=== PATIENT | female | born 1985 | race African-American/Black ===

== ENCOUNTER 2018-08-14 13:06 | Emergency (ER) | payer MEDICARE, MEDICAID ==
[~2018-08-14 13:06] MED LIST: ISOVUE-370 76%-LOCM 1 ML ONE
[2018-08-14 13:39] LABS: #Lymphocytes 2.2 thou/uL (1.20-3.40); #Monocytes 0.5 thou/uL (0.11-0.59); #Neutrophils 4.3 thou/uL (1.40-6.50); %Basophils 0.1 % (0.0-1.0); %Eosinophils 0.4 % (0.0-10.0); %Lymphocytes 31.7 % (21.0-51.0); %Monocytes 7.2 % (0.0-10.0); %Neutrophils 60.6 % (42.0-75.0); Hemoglobin 13.1 g/dL (12.0-16.0); Mean Corpuscular HGB CONC 31.9 g/dL (32.0-36.0); Mean Corpuscular Hemoglobin 28.4 pg (27.0-31.0); Mean Corpuscular Volume 88.9 fL (78.0-98.0); Mean Platelet Volume 7.8 fL (7.4-10.4); Platelet Count 310 thou/uL (130-400); RBC Distribution Width 11.6 % (11.5-14.5); Red Blood Cell (RBC) Count 4.62 mill/uL (4.20-5.40)
[2018-08-14 14:04] LABS: ALT (SGPT) 24 U/L (8-55); AST (SGOT) 18 U/L (5-34); Albumin 4.5 g/dL (3.5-5.0); Alkaline Phosphatase 88 U/L (40-150); Anion Gap 14 mmol/L (10-20); BUN (Urea Nitrogen) 11 mg/dL (7.0-18.7); Bilirubin, Total 0.3 mg/dL (0.2-1.2); CK (CPK) 67 U/L (29-168); Calc. Creatinine Clearance 0 mL/min (70-130); Calcium 9.5 mg/dL (7.8-10.44); Carbon Dioxide 22 mmol/L (22-29); Chloride 105 mmol/L (98-107); Estimated GFR-MDRD Greater than 90; Globulin 3.5 g/dL (2.4-3.5); Glucose 83 mg/dL (70-105); Lipase 20 U/L (8-78); Potassium 3.5 mmol/L (3.5-5.1); Sodium 137 mmol/L (136-145)
[2018-08-14 14:44] LABS: BHCG - Serum Negative (NEGATIVE); Pregs Control Background? CLEAR/WHITE (CLR/WHITE); Pregs Control Bar Appear? YES (CONTROL BAR)
--- NOTE | 2018-08-14 15:49 | RAD ---
PORTABLE CHEST 1 VIEW: DATE: 08/14/2018. TIME: 1:30 p.m. HISTORY: Chest pain. FINDINGS: The heart size is normal. The lungs are expanded without focal areas of consolidation, pneumothorax, or pleural effusions. IMPRESSION: No acute process. POS: [facility]
[2018-08-14] MEDS ORDERED: Ketorolac Tromethamine 30 MG/ML VIAL ONE (16:10)
--- NOTE | 2018-08-14 16:16 | CT ---
CTA THORAX WITH CONTRAST: 08/14/18 (Computed Tomographic Angiography, chest(noncoronary) with contrast material, and image postprocessin g) (PE protocol) HISTORY: 33-year-old female with chest pain. TECHNIQUE: IV injection of iodinated contrast: 100 mL isovue 370. Scan acquisition timing attempted to coincide with iodinated contrast bolus reaching maximal density in pulmonary arteries. 3D MIP reconstructions. FINDINGS: Pulmonary thromboembolism: None. Lungs: Clear. Pneumothorax: None. Pleural effusion: None. Thoracic aorta: No aneurysm or dissection. Mediastinum: No lymphadenopathy or other mass. Velia: No lymphadenopathy or other mass. IMPRESSION: Normal. isadora[] POS: [facility]
== END 2018-08-14 16:19 | disposition home or self-care (01) ==
LOC: ERS 13:06
DX: F41.9 Anxiety disorder, unspecified (principal); F32.9 Major depressive disorder, single episode, unspecified
CPT/HCPCS: 71045; 71275; 80053; 82550; 83690; 84484; 84703; 85025; 85379; 93005; 96374; J1885; Q9966

== ENCOUNTER 2019-06-22 07:42 | Emergency (ER) | payer MEDICARE, MEDICAID ==
[2019-06-22 17:37] LABS: Pregnancy Test - Urine (BHCG) POSITIVE (Negative); Pregu Control Background? CLEAR/WHITE (CLR/WHITE); Pregu Control Bar Appear? YES (CONTROL BAR); Specific Gravity 1.026 (1.002-1.036)
== END 2019-06-22 09:23 | disposition home or self-care (01) ==
LOC: ERS 07:42
DX: O99.89 Other specified diseases and conditions complicating pregnancy, childbirth and the puerperium (principal); N64.4 Mastodynia; O99.331 Smoking (tobacco) complicating pregnancy, first trimester; F17.200 Nicotine dependence, unspecified, uncomplicated; Z3A.01 Less than 8 weeks gestation of pregnancy
CPT/HCPCS: 81025; 99284

== ENCOUNTER 2019-07-10 16:43 | Emergency (ER) | payer MEDICARE, OTHER ==
[2019-07-10] MEDS ORDERED: diphenhydrAMINE 50 MG/ML VIAL ONE (18:06)
[2019-07-10] MEDS ORDERED: Metoclopramide HCl 10 MG/2 ML VIAL ONE (18:06)
[2019-07-10 19:15] LABS: Bilirubin Negative (Negative); Blood, Urine Negative (Negative); Glucose, Urine (Dipstick) Normal (Negative); Leukocyte Negative Leu/uL (Negative); Nitrite Negative (Negative); Protein, Urine (Dipstick) Negative (Neg-Trace); Urobilinogen Normal mg/dL (Less than 2)
[2019-07-10 19:17] LABS: Clarity Slightly Cloudy (Clear)
[2019-07-10 19:39] LABS: Hemoglobin 11.9 g/dL (12.0-16.0); Mean Corpuscular HGB CONC 34.5 g/dL (32.0-36.0); Mean Corpuscular Hemoglobin 29.3 pg (27.0-31.0); Mean Corpuscular Volume 85.1 fL (78.0-98.0); Mean Platelet Volume 8.2 fL (7.4-10.4); Platelet Count 263 thou/uL (130-400); RBC Distribution Width 11.1 % (11.5-14.5); Red Blood Cell (RBC) Count 4.07 mill/uL (4.20-5.40); White Blood Cell (WBC) Count 7.4 thou/uL (4.8-10.8)
[2019-07-10 20:02] LABS: ALT (SGPT) 23 U/L (8-55); AST (SGOT) 16 U/L (5-34); Alkaline Phosphatase 87 U/L (40-110); Anion Gap 16 mmol/L (10-20); BUN (Urea Nitrogen) 10 mg/dL (7.0-18.7); Bilirubin, Total Less than 0.2 mg/dL (0.2-1.2); Calc. Creatinine Clearance 0 mL/min (70-130); Calcium 9.9 mg/dL (7.8-10.44); Carbon Dioxide 20 mmol/L (22-29); Chloride 106 mmol/L (98-107); Estimated GFR-MDRD Greater than 90; Globulin 3.2 g/dL (2.4-3.5); Glucose 91 mg/dL (70-105); Potassium 3.7 mmol/L (3.5-5.1); Protein, Total 7.2 g/dL (6.0-8.3); Sodium 138 mmol/L (136-145)
[2019-07-10 20:12] LABS: #Eosinphils 0.1 thou/uL (0.0-0.7); #Lymphocytes 2.3 thou/uL (1.20-3.40); #Monocytes 0.5 thou/uL (0.11-0.59); #Neutrophils 4.4 thou/uL (1.40-6.50); %Basophils 0.2 % (0.0-1.0); %Eosinophils 0.9 % (0.0-10.0); %Lymphocytes 31.6 % (21.0-51.0); %Monocytes 7.3 % (0.0-10.0); %Neutrophils 60.1 % (42.0-75.0); Band 3 % (5-11); Eosinophils 2 % (0-10); Lymphocytes 31 % (21-51); MDiff Complete? YES; Monocytes 5 % (0-10); Neutrophil 59 % (42-75); Platelet Morphology Comment Appears Adequate; RBC Morphology Normal
[2019-07-10] MEDS ORDERED: Acetaminophen 500 MG TAB ONE (22:05)
--- NOTE | 2019-07-10 22:14 | ULT ---
US Pelvic W Doppler HISTORY: Size and dates severe headache COMPARISON: None. FINDINGS: There is a twin viable intrauterine present. Twin A has crown-rump length measure ments of 2 cm corresponding to 8 weeks 4 days. heart rate is 163 bpm. Twin B measures 1.5 cm corresponding to 7 weeks 6 days. heart rate is 160 bpm. There appear to be separate amniotic sacs. The right and left adnexa are unremarkable. Doppler evaluation with spectral analysis: Normal flow shown to the adnexal regions. IMPRESSION: Twin viable intrauterine . Twin A has measurements corresponding to 8 weeks 4 da ys with an estimated date of delivery of 02/15/2020 and twin B is 7 weeks 6 days with an estimated date of delivery of 02/20/2020.
== END 2019-07-10 22:50 | disposition home or self-care (01) ==
LOC: ERS 16:43
DX: O99.89 Other specified diseases and conditions complicating pregnancy, childbirth and the puerperium (principal); R51 Headache; Z3A.08 8 weeks gestation of pregnancy
CPT/HCPCS: 76856; 80053; 81003; 85025; 93976; 96365; 96375; J1200; J2765

== ENCOUNTER 2019-12-15 11:02 | Day surgery (SDC) | payer MEDICARE, MEDICAID ==
[2019-12-15 11:51] VITALS: BMI 34.7
[2019-12-15 12:13] LABS: #Basophils 0.1 thou/uL (0.0-0.2); #Lymphocytes 1.4 thou/uL (1.20-3.40); #Monocytes 0.4 thou/uL (0.11-0.59); #Neutrophils 7.2 thou/uL (1.40-6.50); %Basophils 0.6 % (0.0-1.0); %Eosinophils 0.2 % (0.0-10.0); %Lymphocytes 15.6 % (21.0-51.0); %Monocytes 4.7 % (0.0-10.0); %Neutrophils 78.9 % (42.0-75.0); Hemoglobin 12.4 g/dL (12.0-16.0); Mean Corpuscular HGB CONC 32.9 g/dL (32.0-36.0); Mean Corpuscular Hemoglobin 28.3 pg (27.0-31.0); Mean Corpuscular Volume 85.9 fL (78.0-98.0); Mean Platelet Volume 9.2 fL (7.4-10.4); Platelet Count 172 thou/uL (130-400); Red Blood Cell (RBC) Count 4.39 mill/uL (4.20-5.40); White Blood Cell (WBC) Count 9.1 thou/uL (4.8-10.8)
[2019-12-15 12:32] LABS: Bacteria/HPF 2+ HPF (None Seen); Bilirubin Negative (Negative); Blood, Urine Negative (Negative); Clarity Turbid (Clear); Glucose, Urine (Dipstick) Normal (Negative); Leukocyte 75 Leu/uL (Negative); Nitrite Negative (Negative); Protein, Urine (Dipstick) 100 mg/dL (Neg-Trace); RBC/HPF 0-3 HPF (0-3); Urobilinogen Normal mg/dL (Less than 2)
--- NOTE | 2019-12-15 12:37 | PDOC.LDHP ---
Labor and Delivery H&P Chief complaint: other (Lightheadedness) HPI: 34yo di-di twin gestation @ 30.2wks by LMP and 13.2wk logan presents to L&D from clinic with complaints of lightheadedness and near syncope. Pt states that she has had minimal appetite for the last 2 days and has not eaten much of anything or drank anything during that time. Denies any N/V/D during this time. This morning she was getting up from bed to go to the bathroom around 0400 and suddenly got lightheaded, sweaty, and developed tunnel vision before sitting back down on her bed. This resolved after a few minutes. Went to the clinic for routine f/u and labs and had recurrence of these symptoms, getting very light headed and sweaty while walking to her room and then developing tunnel vision feeling like she was going to pass out as she sat down. Denies any chest pain, shortness of breath, or nausea with this. Did note some left arm pain to the provider but was unsure if this was because the BP cuff aggrivated an old injury to that area. Pt was then sent here for further workup.No family or personal hx of clotting/bleeding disorders. No recent trauma, leg pain/swelling. Current gestational age (weeks): 30 (.2) Grav: 5 Para: 2 (2021) Current complications: di/di twins Abnormal US findings: Yes (18% discordance on 08/18/2019) Past Medical History: Depression Current medications: pre- vitamins Previous surgical history: other (Left arm ORIF) Allergies/Adverse Reactions: Allergies Allergy/AdvReac Type Severity Reaction Status Date / Time hydrocodone bitartrate Allergy Unknown Verified 10/07/19 11:31 [From Vicodin] tramadol Allergy Unknown Verified 10/07/19 11:31 Social history: none - Physical Exam Vital signs reviewed and normal: yes General: NAD, resting Heart: RRR Lungs: CTAB Abdomen: gravid Extremeties: no edema FHT: category 1, variability present - OB Labs Blood type: O RH: positive Antibody Screen: negative HIV: negative RPR: negative HEPSAg: negative Rubella: immune Additional Labs: TSH 0.382 A1c 5.4 - Assessment Encounter of 3T Twin Gestation Near syncopal episodes - likely related to vasovagal event - Plan -: Near Syncope - Likely 2/2 Vasovagal Event - NST: reactive for twin A and B with Cat 1 strips - EKG: NSR, T wave inversions in III, AVF, V1, V2 - Pt received 1L LR bolus and ate lunch/PO hydrated - Afterwards she was feeling much better - BP improved from around 100 syst to in the 110's - Had elevated prot/cr ratio but this was likely due to a very contaminated catch - All other labs normal - Discussed return precautions prior to DC Dinesh Martinez PGY1 This case was discussed with Dr. Leary, attending, who agreed with the plan. Addendum - Attending - Attending Attestation Date/Time: 12/16/1997 I personally evaluated the patient and discussed the management with Dr. Martinez on day of service. I agree with the History, Examination, Assessment and Plan documented above with any addition or exceptions noted below. Patient asymptomatic and well appearing during my exam. She had what seem to be quite clearly vasovagal episodes upon standing with lightheadedness, sweating/ mild nausea and presyncope in the setting of a twin gestation and decreased PO intake. Her exam is nonfocal with RRR s M, neg homans/simran/circ difference of calves. On EKG changes c/w noted. Unremarkable labs except a contaminated clean catch. After fluid bolus she felt markedly better and desired to go home. Follow up next week as she has had incomplete care due to lack of follow up. I have very low suspicion for ACS or PE. Return precautions discussed.
[2019-12-15 12:38] LABS: Troponin I Less than 0.010 ng/mL (< 0.028)
[2019-12-15 12:48] LABS: Urine Culture Reflex No No
[2019-12-15] MEDS ORDERED: Lactated Ringer's 1,000 ML IV SCH (13:00)
[2019-12-15 13:29] LABS: ALT (SGPT) 10 U/L (8-55); AST (SGOT) 13 U/L (5-34); Albumin 3.8 g/dL (3.5-5.0); Alkaline Phosphatase 122 U/L (40-110); Anion Gap 16 mmol/L (10-20); BUN (Urea Nitrogen) 7 mg/dL (7.0-18.7); Bilirubin, Total 0.2 mg/dL (0.2-1.2); Calc. Creatinine Clearance 214 mL/min (70-130); Calcium 9.3 mg/dL (7.8-10.44); Carbon Dioxide 18 mmol/L (22-29); Chloride 104 mmol/L (98-107); Estimated GFR-MDRD Greater than 90; Globulin 3.5 g/dL (2.4-3.5); Glucose 71 mg/dL (70-105); Potassium 3.7 mmol/L (3.5-5.1); Protein, Total 7.3 g/dL (6.0-8.3); Sodium 134 mmol/L (136-145)
== END 2019-12-15 16:00 | disposition home or self-care (01) ==
LOC: L&D/OP 11:02
DX: O99.89 Other specified diseases and conditions complicating pregnancy, childbirth and the puerperium (principal); R55 Syncope and collapse; O30.043 Twin pregnancy, dichorionic/diamniotic, third trimester; Z3A.30 30 weeks gestation of pregnancy; Z88.5 Allergy status to narcotic agent
CPT/HCPCS: 36415; 59025; 80053; 81001; 82570; 83880; 84156; 84484; 85025; 93005; 93010; 96360; 96361; 99283

== ENCOUNTER 2020-02-07 13:31 | Inpatient (IN) | payer MEDICARE, MEDICAID ==
--- NOTE | 2020-02-07 22:33 | PDOC.FPROB ---
FMR OB H&P: HPI - History of Present Illness Chief Complaint: mIOL for twin Indentification: 34 yo @ 38.3 weeks by 13.2 sono History of Present Illness: Patient is a 34 yo @ 38.3 weeks by 13.2 sono, PMHx of Depression, SAB x 2 and incomplete care who presented for mIOL for twin which will now be a scheduled csection. Patient notes good movement. Notes mild vaginal discharge a few days ago and loss of her mucous plug 5 days ago. Denies fever, vaginal bleeding, loss of fluid. After being presented with the option of vs Csection, the patient decided she would rather do a scheduled csection. Patient states that she is dealing with depression and anxiety, notes she takes prozac and last took it this morning. Primary Care Physician: VERONICA Nunn FMR OB H&P: Current - Care : 5 Para: 2021 Gestational age: 38.3 weeks Due date: 02/18/2020 Dating Criteria: 13.2 week sono Course/Complications: Twin , Hx SAB x 2, incomplete care, Depression, Hx PPD - OB Labs Blood type: O RH: positive Antibody Screen: negative HIV: negative RPR: negative HepBsAg: negative Rubella: immune Urine drug screen: not done Gonorrhea: negative Chlamydia: negative Pap Smear: no hx abnormal pap smears A1c: 5.4 GBS: unknown H&H: 10.6/31.6 Additional labs: labs from Jul 2019 - First Trimester Ultrasound First trimester: Di/di twin confirmed. - Anatomy Survey Anatomy survey: Pt did not follow up for anatomy scan. FMR OB H&P: History - Past Medical History PMH: Depression - OB History OB History: ; SAB x2, 2 normal with no complications - ENGAGEMENT MGR History ENGAGEMENT MGR History: No abnormal pap smears, denies STDs - Surgical History Sx History: None - Social History Social History: Smoker, stopped smoking after she found out she was ; denies alcohol or drugs - Family History Family History: Mother: DM, cancer FMR OB H&P: Medications - Current Home Medications: Medication Instructions Recorded Confirmed Type Vitamin 1 tab PO DAILY 08/18/13 02/07/20 History FLUoxetine HCl [Prozac] 10 mg PO DAILY 02/07/20 02/07/20 History Omeprazole 20 mg PO DAILY 02/07/20 02/07/20 History Allergies/Adverse Reactions: Allergies Allergy/AdvReac Type Severity Reaction Status Date / Time hydrocodone bitartrate Allergy Unknown Verified 10/07/19 11:31 [From Vicodin] FMR OB H&P: ROS - Review of Systems General: denies: fever/chills, night sweats Eyes: denies: eye pain, vision changes ENT: denies: nasal congestion, rhinorrhea Respiratory: denies: cough, congestion Gastrointestinal: denies: nausea, vomiting Genitourinary (Female): denies: incontinence, dysuria Musculoskeletal: reports: other (pain in lower back and right leg) Neurologic: denies: numbness, syncope Integumentary: denies: itching, rash Psychological: reports: depression, anxiety FMR OB H&P: Vital Signs - Maternal Vital signs: HR 105, RR 16, BP 143/83, afebrile - Heart Tones Baseline: 140 FMR OB H&P: Physical Exam - Physical Exam General: NAD, awake, alert and oriented HEENT: normocephalic and atraumatic, EOMI Heart: RRR, no murmurs/rubs/gallops General: CTAB, no respiratory distress Abdomen: soft, gravid Musculoskeletal: normal gait and station, pulses present Neurological: sensation to pain,touch and proprioception grossly normal Skin: no rash, no jaundice Lymphatic: no unusual bruising or bleeding - Pelvic Exam Vulva: normal hair distribution, no masses, no lesions, no discharge, no blood, normal rugae SVE: 1/thick/-3 Membranes: intact Presentation: vertex, vertex FMR OB H&P: Results - Imaging Imaging: US showed vertex, vertex with anterior placenta FMR OB H&P: A/P Discussion: Date/Time: 02/07/202230 Patient is a 34 yo @ 38.3 weeks by 13.2 sono, PMHx of Depression, obesity, SAB x 2 and incomplete care who presented for mIOL for twin which will now be a scheduled csection. After being presented with the option of vs Csection, the patient decided she would rather do a scheduled csection. Patient states that she is dealing with depression and anxiety, notes she takes prozac and last took it this morning. Term Twin , Di/Di - Csection scheduled for 02/07 at 0730 - a1c 5.4, HIV neg, Rub immune, TSH 0.382, GC neg, COVID neg - O+, Ab neg - GBS unknown - HBsAg, RPR labs ordered - Hemagram ordered - NPO at midnight - Strip showed heart tones at 130s-140s, cat I - will continue to monitor strip Hx incomplete care - no anatomy scan, no GTT - labs ordered, see above Hx SAB x 2 - unknown cause Depression - hx of PPD - taking prozac, last taken 02/06 am - close monitoring s/p delivery This H&P was discussed with Dr. Arambula and Dr. Leary who agree with the above documentation and plan. Reviewed hx with international coordinator Mary Ann Vinson as above. Agree with plan. Discussed CS vs with patient who wished to proceed with CS. Patient to be NPO @ midnight. Scheduled for CS @ 730. Patient with cat 1 FHT. SVE /. Will continue to monitor throughout the night. Case discussed with Dr. Leary Addendum - Attending - Attending Attestation Date/Time: 02/08/20 0746 I personally evaluated the patient and discussed the management with the team. I agree with the History, Examination, Assessment and Plan documented above with any addition or exceptions noted below. Risks discussed of both and PLTCS and she decided on PLTCS. She had originally been planning on this and is more comfortable with this option. Will schedule for 02/07 AM.
[2020-02-07 23:09] VITALS: BMI 37.3
[2020-02-07] MEDS ORDERED: hydrALAZINE 20 MG/ML VIAL SLOW IVP PRN (23:53)
[2020-02-07] MEDS ORDERED: Promethazine HCl 25 MG/ML VIAL IM PRN (23:53)
[2020-02-07] MEDS ORDERED: Ondansetron PF 4 MG/2 ML Vial IVP PRN (23:53)
[2020-02-08 06:34] LABS: Hemoglobin 11.1 g/dL (12.0-16.0); Mean Corpuscular HGB CONC 32.5 g/dL (32.0-36.0); Mean Corpuscular Hemoglobin 26.5 pg (27.0-31.0); Mean Corpuscular Volume 81.7 fL (78.0-98.0); Mean Platelet Volume 9.8 fL (7.4-10.4); Platelet Count 151 thou/uL (130-400); RBC Distribution Width 12.9 % (11.5-14.5); Red Blood Cell (RBC) Count 4.17 mill/uL (4.20-5.40); White Blood Cell (WBC) Count 4.9 thou/uL (4.8-10.8)
[2020-02-08 07:12] LABS: Syphilis Antibody Nonreactive (Nonreactive); Syphilis Antibody Index 0.03 S/CO (<1.00 Non-Reactive)
[2020-02-08 07:13] LABS: HBSAg Index 0.15 S/CO (0-0.99); Hep B Surf Ag Non-Reactive S/CO (NonReactive)
[2020-02-08] MEDS ORDERED: CEFAZOLIN 2 GM in Premix Bag 1 BAG IVPB SCH (07:15)
[2020-02-08] MEDS ORDERED: Bicitra 30 ML UDCUP PO SCH (07:15)
[2020-02-08] MEDS ORDERED: Fentanyl 100 MCG/2 ML VIAL ONE (07:23)
[2020-02-08] MEDS ORDERED: Oxytocin 10 UNITS/ML VIAL ONE ×2 (07:23→09:28)
[2020-02-08] MEDS ORDERED: MORPHINE 5 MG/10 ML PF VIAL ONE (07:24)
[2020-02-08] MEDS ORDERED: Bicitra 30 ML UDCUP ONE (07:33)
[2020-02-08] MEDS: Lactated Ringer's 1,000 ML IV SCH ×2 (07:50→23:35)
[2020-02-08] MEDS ORDERED: Methylergonovine 0.2 MG/ML VIAL ONE (08:58)
[2020-02-08] MEDS ORDERED: Carboprost 250 MCG/ML AMP ONE (08:58)
[2020-02-08] MEDS ORDERED: Misoprostol 200 MCG TAB ONE (08:59)
[2020-02-08] MEDS ORDERED: PHENYLEPHRINE-NS 100 MCG/ML 10 ML SYRINGE ONE (09:22)
[2020-02-08] MEDS ORDERED: Ondansetron PF 4 MG/2 ML Vial ONE (09:22)
[2020-02-08] MEDS ORDERED: Ondansetron HCl/PF 4 MG/2 ML Vial IVP PRN (10:49)
[2020-02-08] MEDS ORDERED: Meperidine HCl/PF 25 MG/ML VIAL SLOW IVP PRN (10:49)
[2020-02-08] MEDS ORDERED: Naloxone HCl 0.4 mg/ml Vial IV PRN (10:52)
[2020-02-08] MEDS ORDERED: Ondansetron PF 4 MG/2 ML Vial IVP PRN ×2 (10:52→12:39)
[2020-02-08] MEDS ORDERED: Promethazine HCl 25 MG/ML VIAL IM PRN (10:52)
[2020-02-08] MEDS ORDERED: Promethazine HCl 25 MG SUPP PR PRN (10:52)
[2020-02-08] MEDS ORDERED: Naloxone HCl 0.4 mg/ml Vial IVP PRN ×2 (10:52)
[2020-02-08] MEDS ORDERED: Ketorolac Tromethamine 30 MG/ML VIAL IVP SCH (11:00)
[2020-02-08] MEDS ORDERED: Communication Order-Pharmacy FS SCH (11:00)
--- NOTE | 2020-02-08 11:47 | OP ---
DATE OF PROCEDURE: 02/08/2020 PRIMARY SURGEON: Jorge Alberto Lemons M.D., Bethel Nunn D.O. ASSISTANCE SURGEON: Donny Hardin M.D. PROCTORING SURGEON: Kirt Leary M.D. PREOPERATIVE DIAGNOSES: 1. Dichorionic diamniotic twins at 38.4 weeks. 2. History of 2 prior spontaneous abortions. 3. Obesity. 4. Intermittent followup. 5. History of depression. 6. Prior vaginal delivery x2. POSTOPERATIVE DIAGNOSES: 1. Suspected monochorionic diamniotic twins based on gross pathological assessment. 2. hemorrhage. 3. History of 2 prior spontaneous abortions. 4. Obesity. 5. Intermittent followup. 6. History of depression. 7. Prior vaginal delivery x2. ANESTHESIA: Spinal. QUANTITATIVE BLOOD LOSS: 1655 mL. DRAINS: Baugh catheter with clear urine pre and postoperatively. INDICATIONS: Ms. Hazel is a 34-year-old, 5, para 2-0-2-2 at 38.4 weeks who initially presented for induction of labor at 38 weeks per [facility] recommendations for dichorionic diamniotic twins. After discussion of indication, risks, and benefits of attempting a vaginal twin delivery versus proceeding with primary , the patient elected to proceed with primary . She was scheduled on the morning of 02/07. The [facility]ist [facility] was notified of the patient on arrival. PROCEDURE IN DETAIL: The patient provided consent after risks, benefits, alternatives were discussed. She was given Ancef 2 g preoperatively. She was taken to the operating room and spinal anesthesia was initiated. She was placed in the supine position with left lateral tilt and prepped and draped in usual sterile fashion. A Pfannenstiel incision was carried down in the midline to the fascia, which was sharply nicked. Bovie cautery was used at this time to address subcuticular bleeding vessels. The fascial incision was bluntly extended. The superior and inferior edges of the fascia were elevated with Chandrakant clamps and bluntly and sharply dissected free of the underlying rectus muscles. The rectus muscles were divided digitally. The peritoneum was entered digitally. The rectus muscles and peritoneum were retracted manually. Ned O retractor was placed providing optimal visualization of the lower uterine segment. At this time, the uterus was rotated slightly towards the maternal right. The lower uterine segment was identified as was the midline of the uterus and a lower uterine segment score was made with a clean scalpel. The uterus was entered bluntly with the Yankauer suction tip and at this time, baby A's amniotic sac was ruptured, draining clear fluid. The hysterotomy was extended in the caudocranial fashion manually. Hand was placed into the uterus to elevate baby A's head to the level of hysterotomy. The baby A was easily delivered with fundal pressure through the hysterotomy. Cord was cut and clamped immediately and handed off to the awaiting nursery team. Cord blood was collected from baby A and a May clamp was left on baby A's umbilical cord to later identify for pathology. Attention was then turned to baby B. Baby B had restituted in a left oblique vertex position. The head was identified and grasped with the amniotic sac still intact. The head was elevated to the level of the hysterotomy and the amniotic sac was ruptured at this time with an Allis clamp. Head was engaged with the hysterotomy and delivered easily with fundal pressure. The cord was cut and clamped, and the baby was taken to the awaiting nursery team. Cord blood was collected for baby B and a plastic umbilical cord clamp was fixed to baby's B cord for identification at pathology. The placenta was then manually extracted intact and sent to Pathology. The uterus was left in the abdomen and was curetted with 2 dry laparotomy sponges twice. The apices and lower portion of the lower uterine segment were identified with ring forceps. There was a briskly bleeding vessel noted along the aspect of lower edge of the hysterotomy, but this was easily controlled with a ring forceps. Primary closure of the hysterotomy was performed using a running locking #1 Monocryl stitch. A second imbricating layer was performed using a running horizontal mattress of #1 Monocryl. At this time, the hysterotomy was noted to be hemostatic. The pelvic gutters were inspected and noted to be hemostatic. The Ned self retractor was removed and the hysterotomy was examined one final time and noted again to be hemostatic. The peritoneum edges were identified and reapproximated using a running 2-0 Monocryl stitch. The superior and inferior edges of the fascia were elevated and the underlying rectus muscles were inspected and noted to be hemostatic. The fascia was inspected, was noted to be hemostatic, and was reapproximated using a running nonlocking 0-PDS stitch. Subcutaneous tissues were irrigated and all bleeders were addressed at this time with Bovie cautery. The subcutaneous layer was reapproximated using a 2-0 plain gut stitch. The skin was reapproximated using 4-0 Monocryl and Dermabond was placed over the incision. The patient tolerated the procedure well and went to the routine recovery unit. Both babies did well and went to the nursery for routine care. FINDINGS: 1. Grossly monochorionic diamniotic placenta with 3-vessel cords with eccentric, but not marginal insertions. 2. Grossly normal male , baby A, born at 0859 hours, weighing 3249 g with Apgars of 8 and 9 at one and five minutes respectively. 3. Grossly normal female infant, baby B born at 0900 hours with Apgars of 8 and 9 at one and five minutes respectively, weighing 2779 g. 4. Grossly normal maternal anatomy. 5. Should the patient become again in the future, she would be an ideal candidate for a trial of labor after . 6. Dr. Leary was present as patel for the entire case. Job ID: [id number] [facility]
[2020-02-08] MEDS ORDERED: hydrALAZINE 20 MG/ML VIAL SLOW IVP PRN (12:39)
[2020-02-08] MEDS ORDERED: diphenhydrAMINE 25 MG CAP PO PRN (12:39)
[2020-02-08] MEDS ORDERED: Adacel (T-DAP) 0.5 ML SYRINGE IM ONE (12:39)
[2020-02-08] MEDS ORDERED: Lanolin Ointment 7 GM TUBE TOP PRN (12:39)
[2020-02-08] MEDS ORDERED: Acetaminophen 325 MG TAB PO PRN (12:39)
--- NOTE | 2020-02-08 13:11 | PDOC.BPN ---
- Brief Progress Note 4 hour postop check Patient reports feeling itchy, nursing to bring her med soon. She reports having nausea, vomiting immediately post-op though this has now improved. She is hungry and tolerating jello, clear liquids well now. Denies pain. Urine clear /yellow with 100mL in bag. Recovery bleeding 45mL, now minimal. Continue routine care.
[2020-02-08] MEDS: diphenhydrAMINE 50 MG/ML VIAL IVP PRN ×2 (13:31→18:17)
[2020-02-08] MEDS: Ketorolac Tromethamine 30 MG/ML VIAL IVP PRN (19:48)
[2020-02-09] MEDS: Ketorolac Tromethamine 30 MG/ML VIAL IVP PRN (06:02)
[2020-02-09 06:05] LABS: Hemoglobin 9.6 g/dL (12.0-16.0); Mean Corpuscular HGB CONC 31.7 g/dL (32.0-36.0); Mean Corpuscular Hemoglobin 25.9 pg (27.0-31.0); Mean Corpuscular Volume 81.8 fL (78.0-98.0); Mean Platelet Volume 9.5 fL (7.4-10.4); Platelet Count 161 thou/uL (130-400); RBC Distribution Width 12.9 % (11.5-14.5); Red Blood Cell (RBC) Count 3.69 mill/uL (4.20-5.40); White Blood Cell (WBC) Count 7.8 thou/uL (4.8-10.8)
--- NOTE | 2020-02-09 07:58 | PDOC.PP ---
Post Progress Note Post Day #: 1 Subjective: Pt is doing well this morning. She has no complaints. Endorsed flatus, good appetite, minimal vaginal bleeding. She has not ambulated at this time, escalera in place. Incision bandage has not been removed but there is no bleeding onto the bandage. She denies lightheadedness, tachycardia. PO intake tolerated: yes Flatus: yes Ambulation: no Vital Signs (12 hours) Temp Pulse Resp BP Pulse Ox 02/09/20 04:00 98.2 F 86 19 142/81 H 02/08/20 23:30 98.3 F 91 19 152/77 H 02/08/20 20:00 98 Weight Weight 107.955 kg - Physical Examination General: NAD Cardiovascular: no m/r/g, RRR Respiratory: clear to auscultation bilaterally, non-labored breathing Abdominal: + bowel sounds, lochia, appropriately TTP Deviation from normal: mild abdominal distention w/o rigidity Fundus firm & at: umbilicus Extremities: negative homans (B) Skin: CS incision dry & intact, no rash Neurological: no gross focal deficits Psychiatric: A&Ox3, normal affect Result Diagrams: 02/09/20 05:59 02/09/20 09:14 Additional Labs: Post Labs Blood Type O POSITIVE 02/08/20 06:07 Hep Bs Antigen Non-Reactive S/CO (NonReactive) 02/08/20 06:07 (1) S/P primary low transverse Code(s): Z98.891 - HISTORY OF UTERINE SCAR FROM PREVIOUS SURGERY Status: Acute (2) hemorrhage Code(s): O72.1 - OTHER IMMEDIATE HEMORRHAGE Status: Acute (3) Elevated blood pressure reading Code(s): R03.0 - ELEVATED BLOOD-PRESSURE READING, W/O DIAGNOSIS OF HTN Status : Acute (4) Major depressive disorder Code(s): F32.9 - MAJOR DEPRESSIVE DISORDER, SINGLE EPISODE, UNSPECIFIED Status : Acute - Assessment/Plan Pt is a 34 yo who delivered via pLTCS at 38 wks, post-op day #1: # pLTCS # Post Hemorrhage - encourage ambulation today, remove escalera prior to 24 hour jesse at 0900 - monitor pain control - Hgb > 7; monitor for signs of symptomatic anemia # MDD - monitor for depression - continue prozac # Elevated BP's - monitor at this time, no severe range pressures - pt diuresing well - potentially pain related - will add medication as she only has tylenol, ibuprofen Dispo: Continue current care. Pt will be here for likely 72 hours. Addendum - Attending - Attending Attestation Date/Time: 02/09/20 3329 I personally evaluated the patient and discussed the management with Dr. Nunn. I agree with the History, Examination, Assessment and Plan documented above with any addition or exceptions noted below. Pain controlled and ambulating this morning. BP elevated overnight. Pre- eclampsia eval underway. Denies severe sx today.
[2020-02-09] MEDS: Prenatal Vitamin 1 TAB PO SCH (08:47)
[2020-02-09] MEDS ORDERED: Simethicone 40 MG/0.6 ML Drop 30 ML BOT PO PRN (08:57)
[2020-02-09 10:00] LABS: ALT (SGPT) 12 U/L (8-55); AST (SGOT) 31 U/L (5-34); Albumin 2.7 g/dL (3.5-5.0); Alkaline Phosphatase 155 U/L (40-110); Anion Gap 13 mmol/L (10-20); BUN (Urea Nitrogen) 5 mg/dL (7.0-18.7); Bilirubin, Total 0.4 mg/dL (0.2-1.2); Calc. Creatinine Clearance 237 mL/min (70-130); Calcium 7.9 mg/dL (7.8-10.44); Carbon Dioxide 21 mmol/L (22-29); Chloride 106 mmol/L (98-107); Estimated GFR-MDRD Greater than 90; Globulin 2.7 g/dL (2.4-3.5); Glucose 72 mg/dL (70-105); Potassium 3.5 mmol/L (3.5-5.1); Protein, Total 5.4 g/dL (6.0-8.3); Sodium 136 mmol/L (136-145); Uric Acid 5.1 mg/dL (2.6-6.0)
[2020-02-09] MEDS: Simethicone Chewable 80 MG TAB PO PRN ×2 (11:15→18:27)
[2020-02-09] MEDS: Acetaminophen/Codeine 30-300mg Tablet PO PRN ×2 (11:16→18:27)
[2020-02-09] MEDS: Ibuprofen 800 MG TAB PO SCH ×2 (14:00→22:13)
[2020-02-09 15:05] LABS: Creatinine, Urine 108.11 mg/dL (47-110)
--- NOTE | 2020-02-09 16:51 | PDOC.EVN ---
Event Note - Event Note Event Note: Patient CBC and CMP WNL. Urine prot/cr elevated. BP have been out of severe range. Will diagnosis with pre-eclampsia without severe features. Monitor BP. Mag for any severe features.
[2020-02-10] MEDS: Simethicone Chewable 80 MG TAB PO PRN ×2 (00:57→12:17)
[2020-02-10] MEDS: Ibuprofen 800 MG TAB PO SCH ×3 (05:22→21:48)
--- NOTE | 2020-02-10 06:37 | PDOC.PP ---
Post Progress Note Post Day #: 2 Subjective: Pt tolerating a diet. Pain is controlled - did not require tylenol 3's this am. She is ambulating, endorsed flatus. Had elevated BP's yesterday with positive protein:creatinine ratio for pre-e. One severe range pressure this am on automatic BP cuff and 20 mins later was 154 with manual BP. She denies HUSAIN, vision changes, chest pain, SOB, RUQ pain, oliguria, LE swelling. PO intake tolerated: yes Flatus: yes Ambulation: yes Vital Signs (12 hours) Temp Pulse Resp BP Pulse Ox 02/10/20 05:40 154/90 H 02/10/20 05:21 98.1 F 85 16 174/80 H 100 02/10/20 00:54 98.5 F 78 16 154/85 H 98 02/09/20 19:52 98.7 F 95 12 145/73 H 97 Weight Weight 107.955 kg - Physical Examination General: NAD Cardiovascular: no m/r/g, RRR Respiratory: clear to auscultation bilaterally Abdominal: + bowel sounds, lochia, no distention, appropriately TTP Extremities: negative homans (B) Skin: CS incision dry & intact, no rash Neurological: no gross focal deficits Psychiatric: A&Ox3, normal affect Result Diagrams: 02/09/20 05:59 02/09/20 09:14 Additional Labs: Post Labs Blood Type O POSITIVE 02/08/20 06:07 Hep Bs Antigen Non-Reactive S/CO (NonReactive) 02/08/20 06:07 (1) S/P primary low transverse Code(s): Z98.891 - HISTORY OF UTERINE SCAR FROM PREVIOUS SURGERY Status: Acute (2) hemorrhage Code(s): O72.1 - OTHER IMMEDIATE HEMORRHAGE Status: Acute (3) Elevated blood pressure reading Code(s): R03.0 - ELEVATED BLOOD-PRESSURE READING, W/O DIAGNOSIS OF HTN Status : Acute (4) Major depressive disorder Code(s): F32.9 - MAJOR DEPRESSIVE DISORDER, SINGLE EPISODE, UNSPECIFIED Status : Acute (5) Pre-eclampsia Code(s): O14.90 - UNSPECIFIED PRE-ECLAMPSIA, UNSPECIFIED TRIMESTER Status: Acute - Assessment/Plan Pt is a 34 yo who delivered via pLTCS at 38 wks, post-op day #1: # pLTCS # Post Hemorrhage - encourage ambulation today, remove escalera prior to 24 hour jesse at 0900 - monitor pain control - tylenol 3's started yesterday - Hgb > 7; monitor for signs of symptomatic anemia # MDD - monitor for depression - continue prozac # Pre-E with a severe range pressure SBP 174 --> 154 - will not initiate Mg as she had a repeat with manual WNL. If she has one more severe will start Mg. Will do manual BP's for the rest of her stay. Discussed needing home BP cuff and checking multiple times per day. Discussed return precautions and will re-iterate before discharge. - pt diuresing 2.4 L in 48 hours - not currently on bp meds Dispo: monitor BP's for severe range pressures, signs of worsening pre-e and progression to eclampsia Addendum - Attending - Attending Attestation Date/Time: 02/10/20 1100 I personally evaluated the patient and discussed the management with Dr. Nunn. I agree with the History, Examination, Assessment and Plan documented above with any addition or exceptions noted below. Denies severe sx this morning but had 1 severe BP pressure. Discussed if she has additional severe BP will initiate mg. Will arranged home BP monitoring today and anticipate d/c in the next 24 hrs pending clinical course. Severe features discussed with patient.
[2020-02-10] MEDS: Prenatal Vitamin 1 TAB PO SCH (09:11)
[2020-02-10] MEDS ORDERED: Senokot S 8.6-50 MG TAB PO PRN (11:56)
[2020-02-10] MEDS ORDERED: Senokot S 8.6-50 MG TAB PO SCH (11:59)
[2020-02-10] MEDS: Acetaminophen/Codeine 30-300mg Tablet PO PRN (17:24)
[2020-02-11] MEDS: Ibuprofen 800 MG TAB PO SCH ×2 (05:37→15:48)
[2020-02-11] MEDS: Acetaminophen/Codeine 30-300mg Tablet PO PRN (05:38)
--- NOTE | 2020-02-11 07:24 | PDOC.PP ---
Post Progress Note Post Day #: 3 Subjective: Pt is a 34 yo who delivered term via pLTCS w/o complications. She currently denies vision changes, chest pain, N/V, shortness of breath, RUQ pain , LE edema. She did have a HUSAIN alleviated with medication. Tolerating PO intake , passed flatus but has not yet had a BM. She is willing to get a BP at home. PO intake tolerated: yes Flatus: yes Ambulation: yes Vital Signs (12 hours) Temp Pulse Resp BP Pulse Ox 02/11/20 05:25 98.1 F 82 18 137/88 02/11/20 01:00 75 18 142/86 H 02/10/20 21:40 97.9 F 105 H 20 140/88 98 Weight Weight 107.955 kg - Physical Examination General: NAD Cardiovascular: no m/r/g, RRR Respiratory: clear to auscultation bilaterally, non-labored breathing Abdominal: + bowel sounds, no distention, appropriately TTP Extremities: negative homans (B) Skin: CS incision dry & intact Neurological: no gross focal deficits Psychiatric: A&Ox3, normal affect Result Diagrams: 02/09/20 05:59 02/09/20 09:14 Additional Labs: Post Labs Blood Type O POSITIVE 02/08/20 06:07 Hep Bs Antigen Non-Reactive S/CO (NonReactive) 02/08/20 06:07 (1) S/P primary low transverse Code(s): Z98.891 - HISTORY OF UTERINE SCAR FROM PREVIOUS SURGERY Status: Acute (2) hemorrhage Code(s): O72.1 - OTHER IMMEDIATE HEMORRHAGE Status: Acute (3) Elevated blood pressure reading Code(s): R03.0 - ELEVATED BLOOD-PRESSURE READING, W/O DIAGNOSIS OF HTN Status : Acute (4) Major depressive disorder Code(s): F32.9 - MAJOR DEPRESSIVE DISORDER, SINGLE EPISODE, UNSPECIFIED Status : Acute (5) Pre-eclampsia Code(s): O14.90 - UNSPECIFIED PRE-ECLAMPSIA, UNSPECIFIED TRIMESTER Status: Acute - Assessment/Plan Pt is a 34 yo who delivered via pLTCS at 38 wks, post-op day #1: # pLTCS # Post Hemorrhage - pt doing well. Discharge to home. She is ambulating well, tolerating a PO intake. She endorsed flatus but no BM at this time. No signs of an acute abdomen or distention. She denies symptoms of anemia. - start Fe on discharge. - Pt discussed tramadol for pain control. Will need to schedule tylenol and motrin. # MDD - monitor for depression - no signs today. Will need follow up with [facility]. - continue prozac # Pre-E with a severe range pressure - no more severe range pressures and no signs of clinical exam, ROS. She is doing well. Discharge to home. Check BP's a few times per day. Return precautions given including BP range and symptoms. - Will not initiate medication at this time. Dispo: discharge to home. Addendum - Attending - Attending Attestation Date/Time: 02/11/20 [id number] I personally evaluated the patient and discussed the management with Dr. Nunn I agree with the History, Examination, Assessment and Plan documented above with any addition or exceptions noted below - Patient without complaints. Denies HUSAIN, visual changes. Afebrile BP 163/96 A/P: 1) POD#3 s/p 1* C/S for twins - had second severe range BP today. Will transfer to L&D and start magnesium for 12-24 hours. Monitor I/Os. If BP remain elevated, will start oral antihypertensive. PLan discussed with patient who verbalizes understanding.
[2020-02-11] MEDS ORDERED: Calcium Gluconate 4.6 MEQ in Sodium Chloride 0.9% 100 ML IVPB PRN (07:57)
[2020-02-11] MEDS ORDERED: Magnesium Sulfate 20 GM/WATER 500 ML BAG IVPB SCH (08:00)
--- NOTE | 2020-02-11 09:40 | PDOC.BPN ---
- Brief Progress Note Pt sustained 2 BP's in the 160's shortly after my interview with patient. She remained asymptomatic but due to elevated pressures will start magnesium for 24 hours. Transfer to L&D. q4h Mg checks. Monitor BP, signs of pre-e. Will need to have discussion about initiating antihypertensive upon discharge. Bethel Nunn, DO Plan discussed with Dr. Melgar.
[2020-02-11] MEDS: Magnesium Sulfate 20 gm/500 ml 20 GM/500 ML BAG IVPB SCH ×2 (10:21→18:51)
[2020-02-11] MEDS ORDERED: hydrALAZINE 20 MG/ML VIAL SLOW IVP PRN (12:19)
[2020-02-11] MEDS ORDERED: hydrALAZINE 20 MG/ML VIAL SLOW IVP SCH (13:45)
[2020-02-11] MEDS: diphenhydrAMINE 50 MG/ML VIAL IVP PRN (14:14)
[2020-02-11] MEDS ORDERED: Labetalol HCl 100 MG/20 ML VIAL ONE (14:30)
[2020-02-11] MEDS: Labetalol HCl 100 MG/20 ML VIAL SLOW IVP SCH ×5 (14:33→23:15)
[2020-02-11] MEDS ORDERED: NIFEdipine XL 30 MG TAB PO SCH ×2 (14:45→22:45)
[2020-02-11] MEDS: Acetaminophen 325 MG TAB PO SCH ×2 (16:20→23:59)
[2020-02-11] MEDS: Prenatal Vitamin 1 TAB PO SCH (16:20)
[2020-02-11 17:51] LABS: #Eosinphils 0.2 thou/uL (0.0-0.7); #Lymphocytes 1.9 thou/uL (1.20-3.40); #Monocytes 0.6 thou/uL (0.11-0.59); #Neutrophils 4.8 thou/uL (1.40-6.50); %Basophils 0.5 % (0.0-1.0); %Eosinophils 2.6 % (0.0-10.0); %Lymphocytes 25.8 % (21.0-51.0); %Monocytes 7.3 % (0.0-10.0); %Neutrophils 63.8 % (42.0-75.0); Hemoglobin 10.3 g/dL (12.0-16.0); Mean Corpuscular HGB CONC 32.7 g/dL (32.0-36.0); Mean Corpuscular Hemoglobin 26.9 pg (27.0-31.0); Mean Corpuscular Volume 82.3 fL (78.0-98.0); Mean Platelet Volume 8.7 fL (7.4-10.4); Platelet Count 261 thou/uL (130-400); RBC Distribution Width 13.1 % (11.5-14.5); Red Blood Cell (RBC) Count 3.84 mill/uL (4.20-5.40); White Blood Cell (WBC) Count 7.5 thou/uL (4.8-10.8)
[2020-02-11 18:10] LABS: ALT (SGPT) 20 U/L (8-55); AST (SGOT) 26 U/L (5-34); Alkaline Phosphatase 136 U/L (40-110); Anion Gap 15 mmol/L (10-20); BUN (Urea Nitrogen) 8 mg/dL (7.0-18.7); Bilirubin, Total 0.3 mg/dL (0.2-1.2); Calc. Creatinine Clearance 250 mL/min (70-130); Calcium 7.7 mg/dL (7.8-10.44); Carbon Dioxide 22 mmol/L (22-29); Chloride 104 mmol/L (98-107); Estimated GFR-MDRD Greater than 90; Globulin 2.8 g/dL (2.4-3.5); Glucose 79 mg/dL (70-105); Protein, Total 5.8 g/dL (6.0-8.3); Sodium 138 mmol/L (136-145)
[2020-02-11 18:18] LABS: Potassium 2.8 mmol/L (3.5-5.1)
[2020-02-11] MEDS ORDERED: Potassium Chloride 20 MEQ TAB PO SCH ×2 (18:30→21:00)
--- NOTE | 2020-02-11 19:00 | PDOC.BPN ---
- Brief Progress Note Checked on patient, patient is doing well. No complaints. Denies headaches, chest pain, vision changes, difficulty with urinating or leg swelling. Patients blood pressure at 1724 was at 175/93. She was given prn labetalol and pressures came down to 135/72 30 min later. No severe range pressures since. Patients urine output since starting Mag have been 150-450ml/hr. Reflexes were 2+.
[2020-02-12] MEDS: Labetalol HCl 100 MG/20 ML VIAL SLOW IVP SCH ×2 (00:48→01:16)
--- NOTE | 2020-02-12 00:55 | PDOC.BPN ---
- Brief Progress Note Checked on patient, patient is doing well. No complaints. Denies headaches, chest pain, vision changes, difficulty with urinating or leg swelling. Patients blood pressure at 2315 was 162/84, pt was given 20mg prn labetalol and pressures came down to 155 systolic then 149 systolic 30 minutes later, last bps have been 150s-140s systolic over 70s-90 diastolic. Patients urine output have been 150-300ml/hr since last check. Reflexes were 2+.
[2020-02-12] MEDS ORDERED: Furosemide 20 MG/2 ML VIAL SLOW IVP SCH (01:30)
[2020-02-12] MEDS ORDERED: Furosemide 40 MG/4 ML VIAL SLOW IVP SCH (01:30)
[2020-02-12] MEDS: Diazepam 10 MG/2 ML SYRINGE IVP SCH ×2 (01:40→04:10)
[2020-02-12] MEDS: Acetaminophen 325 MG TAB PO SCH (01:41)
[2020-02-12] MEDS: Ibuprofen 800 MG TAB PO SCH ×5 (01:41→21:13)
[2020-02-12] MEDS ORDERED: Acetaminophen 500 MG TAB PO PRN (02:34)
[2020-02-12] MEDS ORDERED: Diazepam 10 MG/2 ML SYRINGE IVP SCH (04:00)
--- NOTE | 2020-02-12 07:13 | PDOC.PP ---
Post Progress Note Post Day #: 4 Subjective: Pt is feeling well today but overnight had elevated BP's requiring multiple medications. She remained in severe range pressures. Did receive lasix and diuresed well. She currently has BP <160/110 and denies vision changes, HUSAIN, chest pain, sob, RUQ pain, LE edema, oliguria. She has her son in the room who will help take care of her children while she is admitted. PO intake tolerated: yes Flatus: yes Ambulation: yes Vital Signs (12 hours) Pulse BP 02/12/20 03:40 164/85 H 02/12/20 01:16 85 164/85 H 02/12/20 00:48 85 172/104 H 02/11/20 23:15 85 162/84 H 02/11/20 23:00 85 166/82 H 02/11/20 22:00 85 166/82 H 02/11/20 19:50 85 161/87 H Weight Weight 107.955 kg - Physical Examination General: NAD Cardiovascular: no m/r/g, RRR Respiratory: clear to auscultation bilaterally, non-labored breathing Abdominal: + bowel sounds, no distention, appropriately TTP Extremities: negative homans (B) Skin: CS incision dry & intact, no rash Neurological: no gross focal deficits Deviation from normal: DTR 2+, no clonus Psychiatric: A&Ox3, normal affect Result Diagrams: 02/11/20 17:40 02/12/20 07:15 Additional Labs: Post Labs Blood Type O POSITIVE 02/08/20 06:07 Hep Bs Antigen Non-Reactive S/CO (NonReactive) 02/08/20 06:07 (1) S/P primary low transverse Code(s): Z98.891 - HISTORY OF UTERINE SCAR FROM PREVIOUS SURGERY Status: Acute (2) hemorrhage Code(s): O72.1 - OTHER IMMEDIATE HEMORRHAGE Status: Acute (3) Elevated blood pressure reading Code(s): R03.0 - ELEVATED BLOOD-PRESSURE READING, W/O DIAGNOSIS OF HTN Status : Acute (4) Major depressive disorder Code(s): F32.9 - MAJOR DEPRESSIVE DISORDER, SINGLE EPISODE, UNSPECIFIED Status : Acute (5) Pre-eclampsia Code(s): O14.90 - UNSPECIFIED PRE-ECLAMPSIA, UNSPECIFIED TRIMESTER Status: Acute - Assessment/Plan Pt is a 34 yo who delivered via pLTCS at 38 wks, post-op day #4: # pLTCS # Post Hemorrhage - doing well from a surgical standpoint. Pain is controlled. PO intake tolerated. - Twins will be discharged and room with mother # MDD - monitor for depression - no signs today. Will need follow up with [facility]. - continue prozac # Pre-E with a severe range pressure - magnesium will be d/c this morning then transfer to floor - start procardia 60 mg daily - monitor pressures for 24 hours with initiation of procardia and s/p mg treatment - exam WNL - monitor I&O's # Anemia s/p delivery likely blood loss and iron deficiency - start iron daily Dispo: monitor bp's for 24 hours Addendum - Attending - Attending Attestation Date/Time: 02/12/20913 I personally evaluated the patient and discussed the management with Dr. Nunn I agree with the History, Examination, Assessment and Plan documented above with any addition or exceptions noted below - Patient without complaints. Denies any HUSAIN or visual changes. Afebrile BP 140-170/70-90s A/P: 1) POD#4 s/p 1 * C/S for twins - continue routine care 2) pre-eclampsia with severe features- continue magnesium sulfate til 10:30; started on procardia yesterday and dose increased this morning. Diuresing well. Continue to monitor closely.
[2020-02-12 07:47] LABS: ALT (SGPT) 39 U/L (8-55); AST (SGOT) 43 U/L (5-34); Albumin 3.4 g/dL (3.5-5.0); Alkaline Phosphatase 150 U/L (40-110); Anion Gap 16 mmol/L (10-20); BUN (Urea Nitrogen) 4 mg/dL (7.0-18.7); Bilirubin, Total 0.3 mg/dL (0.2-1.2); Calc. Creatinine Clearance 246 mL/min (70-130); Calcium 7.8 mg/dL (7.8-10.44); Carbon Dioxide 22 mmol/L (22-29); Chloride 104 mmol/L (98-107); Estimated GFR-MDRD Greater than 90; Globulin 3.3 g/dL (2.4-3.5); Glucose 93 mg/dL (70-105); Potassium 3.6 mmol/L (3.5-5.1); Protein, Total 6.7 g/dL (6.0-8.3); Sodium 138 mmol/L (136-145)
[2020-02-12] MEDS ORDERED: NIFEdipine XL 30 MG TAB PO SCH (09:00)
[2020-02-12] MEDS ORDERED: FLUoxetine HCl 10 MG CAP PO SCH (09:30)
[2020-02-12] MEDS: NIFEdipine XL 60 MG TAB PO SCH (10:02)
[2020-02-12] MEDS: Ferrous Sulfate 325 MG TAB PO SCH (13:09)
[2020-02-12] MEDS: Prenatal Vitamin 1 TAB PO SCH (13:10)
[2020-02-12] MEDS ORDERED: hydrOXYzine 25 MG TAB PO PRN (13:45)
[2020-02-12] MEDS: Acetaminophen/Codeine 30-300mg Tablet PO PRN (18:15)
[2020-02-13] MEDS: Acetaminophen/Codeine 30-300mg Tablet PO PRN (02:05)
[2020-02-13 03:31] VITALS: TEMP 98.2
--- NOTE | 2020-02-13 05:54 | PDOC.PP ---
Post Progress Note Post Day #: 5 Subjective: Pt is doing well today. She denies fever, chills, HUSAIN, vision changes, worsening sob, N/V, RUQ pain, LE edema, chest pain. Her abdominal pain is improving. She had a BM. Tolerating PO intake. She does not have a BP cuff at home but is willing to buy one from [facility]. PO intake tolerated: yes Flatus: yes Ambulation: yes Vital Signs (12 hours) Temp Pulse Resp BP 02/13/20 02:01 98.2 F 90 12 140/75 02/12/20 20:41 98.1 F 93 12 131/72 Weight Weight 107.955 kg - Physical Examination General: NAD Cardiovascular: no m/r/g, RRR Respiratory: clear to auscultation bilaterally, non-labored breathing Abdominal: + bowel sounds, lochia, appropriately TTP Extremities: negative homans (B) Skin: CS incision dry & intact, no rash Neurological: no gross focal deficits Psychiatric: A&Ox3, normal affect Result Diagrams: 02/11/20 17:40 02/12/20 07:15 Additional Labs: Post Labs Blood Type O POSITIVE 02/08/20 06:07 Hep Bs Antigen Non-Reactive S/CO (NonReactive) 02/08/20 06:07 (1) S/P primary low transverse Code(s): Z98.891 - HISTORY OF UTERINE SCAR FROM PREVIOUS SURGERY Status: Acute (2) hemorrhage Code(s): O72.1 - OTHER IMMEDIATE HEMORRHAGE Status: Acute (3) Elevated blood pressure reading Code(s): R03.0 - ELEVATED BLOOD-PRESSURE READING, W/O DIAGNOSIS OF HTN Status : Acute (4) Major depressive disorder Code(s): F32.9 - MAJOR DEPRESSIVE DISORDER, SINGLE EPISODE, UNSPECIFIED Status : Acute (5) Pre-eclampsia Code(s): O14.90 - UNSPECIFIED PRE-ECLAMPSIA, UNSPECIFIED TRIMESTER Status: Acute - Assessment/Plan Pt is a 34 yo who delivered via pLTCS at 38 wks, post-op day #5: # pLTCS # Post Hemorrhage - doing well from a surgical standpoint. Pain is controlled. PO intake tolerated. # MDD - monitor for depression - no signs today. Will need follow up with [facility]. - continue prozac # Pre-E with a severe range pressure - continue procardia 60 mg daily - monitor pressures for 24 hours with initiation of procardia and s/p mg treatment - d/c this afternoon if pressures remain < SBP 160/110 and asymptomatic. Discharge to home with procardia 60 mg, follow up at [facility]. - exam WNL - monitor I&O's # Anemia s/p delivery likely blood loss and iron deficiency - start iron daily Dispo: discharge today with close follow up, 72 hours, to [facility] for BP checks Addendum - Attending - Attending Attestation Date/Time: 02/13/20 0901 I personally evaluated the patient and discussed the management with Dr. Nunn I agree with the History, Examination, Assessment and Plan documented above with any addition or exceptions noted below- Patient without complaints. Afebrile BP 130-140/70-80s. A/P: 1) POD#5 s/p 1* C/S for twins- doing well. 2) pre-eclampsia with severe features- BP much improved; magnesium completed. Continue procardia XL 60 mg. Follow-up later this week in office for BP check. D/c home later today.
[2020-02-13] MEDS: Ibuprofen 800 MG TAB PO SCH (06:26)
[2020-02-13] MEDS: Ferrous Sulfate 325 MG TAB PO SCH (08:41)
[2020-02-13] MEDS ORDERED: Prenatal Vitamin 1 TAB PO SCH (09:00)
[2020-02-13] MEDS ORDERED: FLUoxetine HCl 10 MG CAP PO SCH (09:00)
[2020-02-13] MEDS: NIFEdipine XL 60 MG TAB PO SCH (09:11)
[2020-02-13 11:03] VITALS: BP 133/85
== END 2020-02-13 11:59 | disposition home or self-care (01) | DRG 787 ==
LOC: L&D-LIB 22:22 → L&D 02-08 11:58 → 3SW 02-08 12:48 → L&D 02-11 09:45 → 3SW 02-12 12:04
PROVIDERS: ADMIT Family Medicine; ATTEND Family Medicine
PROC: 10D00Z1 Extraction of Products of Conception, Low, Open Approach (ICD-10-PCS; principal; 2020-02-08)
DX: O30.033 Twin pregnancy, monochorionic/diamniotic, third trimester (principal); O72.1 Other immediate postpartum hemorrhage; O99.344 Other mental disorders complicating childbirth; F32.9 Major depressive disorder, single episode, unspecified; F41.9 Anxiety disorder, unspecified; O99.214 Obesity complicating childbirth; E66.9 Obesity, unspecified; Z3A.38 38 weeks gestation of pregnancy; Z37.0 Single live birth; O14.15 Severe pre-eclampsia, complicating the puerperium; O90.81 Anemia of the puerperium; D50.9 Iron deficiency anemia, unspecified; Z88.5 Allergy status to narcotic agent
CPT/HCPCS: 36415; 51702; 76815; 80053; 82570; 83735; 84156; 84550; 85025; 85027; 86780; 86850; 86900; 86901; 87340; 88307; J0360; J0690; J1200; J1885; J1940; J2210; J2274; J2405; J2590; J3010; J3360; J3475; J3490; Q0163

== ENCOUNTER 2022-02-19 10:09 | Emergency (ER) | payer MEDICARE, MEDICAID ==
[2022-02-19] MEDS ORDERED: Ketorolac Tromethamine 30 MG/ML VIAL ONE (11:49)
== END 2022-02-19 12:10 | disposition home or self-care (01) ==
LOC: ERS 10:09
DX: S82.64XA Nondisplaced fracture of lateral malleolus of right fibula, initial encounter for closed fracture (principal); X58.XXXA Exposure to other specified factors, initial encounter
CPT/HCPCS: 29515; 96374; J1885

== ENCOUNTER 2022-07-07 09:56 | Emergency (ER) | payer MEDICARE, MEDICAID ==
[2022-07-07] MEDS ORDERED: Ibuprofen 800 MG TAB ONE (10:44)
== END 2022-07-07 10:48 | disposition home or self-care (01) ==
LOC: ERS 09:56
DX: N64.4 Mastodynia (principal); F17.290 Nicotine dependence, other tobacco product, uncomplicated; Z79.899 Other long term (current) drug therapy
CPT/HCPCS: 99283